=== PATIENT | female | born 1940 | race Caucasian/White ===

== ENCOUNTER 2022-03-02 08:01 | Inpatient (IN) | payer MEDICARE ==
[~2022-03-02] VITALS: Ht 182.9 cm; Wt 56.8 kg
[2022-03-02 10:24] LABS: BASOPHIL 0.4 % (0-2); EOSINOPHIL 0.2 % (0-7); HCT 15.8 % (37.0-47.0); LYMPHOCYTE 5.8 % (15-48); MCH 24.2 pg (25.0-31.0); MCHC 30.4 g/dL (32.0-36.0); MCV 79.8 fL (78.0-100.0); MONOCYTE 10.4 % (0-12); MPV 9.7 fL (6.0-9.5); NEUTROPHIL 82.6 % (41-80); NRBC 0; PLT 500 K/uL (150-400); RBC 1.98 M/uL (4.20-5.40); RDW 18.4 % (11.5-14.0); WBC 13.5 K/uL (4.0-10.5)
[2022-03-02 10:28] LABS: HGB 4.8 g/dl (12.5-16.0)
[2022-03-02 10:57] LABS: ALBUMIN 2.1 g/dL (3.4-5.0); BILIRUBIN - TOTAL 0.3 mg/dL (0.2-1.0); BUN/CREAT RATIO (CALC) 17.1 RATIO; CREATININE 1.11 mg/dL (0.51-0.95); GLOBULIN (CALCULATION) 4.1 g/dL; MAGNESIUM 1.9 mg/dL (1.8-2.4); TOTAL PROTEIN 6.2 g/dL (6.4-8.2)
[2022-03-02 11:01] LABS: LACTIC ACID 1.1 mmol/L (0.4-1.9)
[2022-03-02 14:44] LABS: IRON % SATURATION 7.3 %SAT (20-50)
[2022-03-02 14:46] LABS: RETICULOCYTE COUNT 1.5 % (1.0-2.0)
[2022-03-02 15:12] LABS: FOLIC ACID (SERUM) 5.2 ng/mL (8.6-58.9)
[2022-03-02 22:28] LABS: BILIRUBIN NEGATIVE (NEGATIVE); BLOOD NEGATIVE Ery/uL (NEGATIVE); CLARITY CLEAR (CLEAR); COLOR YELLOW (YELLOW); GLUCOSE (U) NORMAL (NORMAL); LEUKOCYTES TRACE Leu/uL (NEGATIVE); NITRITE NEGATIVE (NEGATIVE); PROTEIN NEGATIVE (NEGATIVE); UROBILINOGEN 0.2 mg/dL (0.2-1.0)
[2022-03-02 22:33] LABS: BACTERIA 4+; URINARY RBC RARE
[2022-03-03 06:48] LABS: BASOPHIL 0.4 % (0-2); EOSINOPHIL 0.6 % (0-7); HCT 22.9 % (37.0-47.0); LYMPHOCYTE 9.1 % (15-48); MCH 25.9 pg (25.0-31.0); MCHC 31.9 g/dL (32.0-36.0); MCV 81.2 fL (78.0-100.0); MONOCYTE 10.7 % (0-12); MPV 9.9 fL (6.0-9.5); NEUTROPHIL 78.6 % (41-80); NRBC 0; PLT 429 K/uL (150-400); RBC 2.82 M/uL (4.20-5.40); RDW 17.2 % (11.5-14.0); WBC 13.9 K/uL (4.0-10.5)
[2022-03-03 06:53] LABS: HGB 7.3 g/dl (12.5-16.0)
[2022-03-03 06:56] LABS: INR 1.25 (0.9-1.2); PTT 38.5 SECONDS (24.4-34.7)
[2022-03-03 07:07] LABS: BILIRUBIN - TOTAL 1.1 mg/dL (0.2-1.0); BUN/CREAT RATIO (CALC) 15.8 RATIO; CREATININE 1.01 mg/dL (0.51-0.95); GLOBULIN (CALCULATION) 3.4 g/dL; MAGNESIUM 1.6 mg/dL (1.8-2.4); POTASSIUM 4.1 mmol/L (3.5-5.1); TOTAL PROTEIN 5.4 g/dL (6.4-8.2)
[2022-03-04 03:50] LABS: BASOPHIL 0.3 % (0-2); EOSINOPHIL 0.4 % (0-7); HCT 22.5 % (37.0-47.0); HGB 7.2 g/dl (12.5-16.0); LYMPHOCYTE 4.4 % (15-48); MCH 26.1 pg (25.0-31.0); MCV 81.5 fL (78.0-100.0); MONOCYTE 6.2 % (0-12); MPV 9.2 fL (6.0-9.5); NEUTROPHIL 88.1 % (41-80); NRBC 0; PLT 388 K/uL (150-400); RBC 2.76 M/uL (4.20-5.40); RDW 18.1 % (11.5-14.0); WBC 19.8 K/uL (4.0-10.5)
[2022-03-04 04:08] LABS: BUN/CREAT RATIO (CALC) 12.5 RATIO; CREATININE 1.12 mg/dL (0.51-0.95); MAGNESIUM 1.8 mg/dL (1.8-2.4); POTASSIUM 3.9 mmol/L (3.5-5.1)
[2022-03-04 07:26] LABS: LACTIC ACID 0.7 mmol/L (0.4-1.9)
[2022-03-05 07:36] LABS: BASOPHIL 0.4 % (0-2); EOSINOPHIL 0.9 % (0-7); HCT 23.1 % (37.0-47.0); HGB 7.1 g/dl (12.5-16.0); LYMPHOCYTE 9.7 % (15-48); MCH 25.6 pg (25.0-31.0); MCHC 30.7 g/dL (32.0-36.0); MCV 83.4 fL (78.0-100.0); MONOCYTE 9.2 % (0-12); MPV 9.5 fL (6.0-9.5); NEUTROPHIL 79.3 % (41-80); NRBC 0; PLT 366 K/uL (150-400); RBC 2.77 M/uL (4.20-5.40); RDW 18.8 % (11.5-14.0); WBC 11.2 K/uL (4.0-10.5)
[2022-03-05 07:56] LABS: BUN/CREAT RATIO (CALC) 12.6 RATIO; CREATININE 1.03 mg/dL (0.51-0.95); MAGNESIUM 1.9 mg/dL (1.8-2.4); POTASSIUM 3.6 mmol/L (3.5-5.1)
[2022-03-05] MEDS ORDERED: FOLIC ACID1 MG PO (13:24)
== END 2022-03-06 06:02 | disposition other institution (70) | DRG 374 ==
LOC: FER 08:01 → FMS 12:11
PROVIDERS: Emergency Medicine; Internal Medicine; Nurse Practitioner Acute Care; ADMIT Internal Medicine
PROC: 0DBF8ZX Excision of Right Large Intestine, Via Natural or Artificial Opening Endoscopic, Diagnostic (ICD-10-PCS; principal; 2022-03-02)
PROC: 0DJ08ZZ Inspection of Upper Intestinal Tract, Via Natural or Artificial Opening Endoscopic (ICD-10-PCS; 2022-03-02)
PROC: 30233N1 Transfusion of Nonautologous Red Blood Cells into Peripheral Vein, Percutaneous Approach (ICD-10-PCS; 2022-03-02)
DX: C18.2 Malignant neoplasm of ascending colon (principal); E43 Unspecified severe protein-calorie malnutrition; Z68.1 Body mass index [BMI] 19.9 or less, adult; N39.0 Urinary tract infection, site not specified; D63.0 Anemia in neoplastic disease; Z20.822 Contact with and (suspected) exposure to COVID-19; K44.9 Diaphragmatic hernia without obstruction or gangrene; K57.30 Diverticulosis of large intestine without perforation or abscess without bleeding; D50.9 Iron deficiency anemia, unspecified; D52.9 Folate deficiency anemia, unspecified; I95.1 Orthostatic hypotension; Z98.49 Cataract extraction status, unspecified eye
CPT/HCPCS: 36415; 36430; 70450; 71045; 80048; 80053; 80202; 81001; 82378; 82607; 82728; 82746; 83540; 83550; 83605; 83735; 84145; 84484; 85025; 85610; 85730; 86140; 86301; 86304; 86850; 86900; 86901; 86922; 87040; 87088; 93005; J0692; J0696; J2405; J2704; J2916; J3370; J7030; J7040; J7050; J7120; P9016; Q9967; U0002

== ENCOUNTER → 2022-06-25 | Day surgery (SDC) | payer MEDICARE ==
[~2022-06-25] VITALS: Ht 182.9 cm; Wt 58.0 kg
[~2022-06-25] MED LIST: FOLIC ACID1 MG PO; IBUPROFEN400 MG PO; ULTRAM50 MG PO
== END | disposition home or self-care (01) ==
LOC: FAS 08:23
DX: C18.9 Malignant neoplasm of colon, unspecified (principal); M19.90 Unspecified osteoarthritis, unspecified site; Z87.891 Personal history of nicotine dependence
CPT/HCPCS: 71045; 76000; C1788; J0690; J1200; J1644; J2250; J2704; J3010; J7120